=== PATIENT | male | born 1970 | race African-American/Black ===

== ENCOUNTER 2020-08-08 17:40 | Inpatient (IN) | payer SELFPAY ==
[2020-08-08] MEDS ORDERED: Magnesium 2 GM/50 ML BAG (IN WATER) ONE ×2 (18:23→18:27)
[2020-08-08] MEDS ORDERED: Labetalol HCl 100 MG/20 ML VIAL ONE (18:23)
[2020-08-08 18:34] LABS: Bacteria/HPF None Seen HPF (None Seen); Bilirubin Negative (Negative); Blood, Urine 3+ (Negative); Clarity Clear (Clear); Glucose, Urine (Dipstick) Normal (Negative); Ketone, Urine 10 mg/dL (Negative); Leukocyte Negative Leu/uL (Negative); Nitrite Negative (Negative); Protein, Urine (Dipstick) 300 mg/dL (Neg-Trace); RBC/HPF 0-3 HPF (0-3); Specific Gravity, Urine 1.033 (1.002-1.036); Squamous Epithelial None Seen HPF (0-3); WBC/HPF 0-3 HPF (0-3)
[2020-08-08 18:42] LABS: Amphetamine Not Detected (NotDetected); Barbiturates Screen Not Detected (NotDetected); Benzodiazepine Screen Not Detected (NotDetected); Cocaine Metabolite Screen Not Detected (NotDetected); Medtox Control Line Valid? VALID (VALID); Medtox Reader # READER 4; Methadone Not Detected (NotDetected); Methamphetamine Not Detected (NotDetected); Opiate Screen Not Detected (NotDetected); Oxycodone Screen Not Detected (NotDetected); Phencyclidine (PCP) Not Detected (NotDetected); THC/Cannabinoid Screen Detected (NotDetected); Tricyclic Screen Not Detected (NotDetected)
[2020-08-08 18:50] LABS: #Lymphocytes 0.7 thou/uL (1.20-3.40); #Monocytes 0.5 thou/uL (0.11-0.59); #Neutrophils 4.3 thou/uL (1.40-6.50); %Basophils 0.9 % (0.0-1.0); %Eosinophils 0.3 % (0.0-10.0); %Lymphocytes 12.7 % (21.0-51.0); %Monocytes 8.1 % (0.0-10.0); %Neutrophils 77.9 % (42.0-75.0); Mean Corpuscular HGB CONC 33.6 g/dL (32.0-36.0); Mean Corpuscular Hemoglobin 33.5 pg (27.0-31.0); Mean Corpuscular Volume 99.9 fL (78.0-98.0); Mean Platelet Volume 8.7 fL (7.4-10.4); Platelet Count 86 thou/uL (130-400); RBC Distribution Width 12.9 % (11.5-14.5); Red Blood Cell (RBC) Count 3.56 mill/uL (4.70-6.10); White Blood Cell (WBC) Count 5.5 thou/uL (4.8-10.8)
[2020-08-08 19:05] LABS: Platelet Morphology Comment Appears Decreased; RBC Morphology Normal
[2020-08-08 19:09] LABS: ALT (SGPT) 63 U/L (8-55); AST (SGOT) 144 U/L (5-34); Albumin 4.6 g/dL (3.5-5.0); Alkaline Phosphatase 58 U/L (40-110); Anion Gap 23 mmol/L (10-20); BUN (Urea Nitrogen) 14 mg/dL (8.9-20.6); Bilirubin, Total 0.9 mg/dL (0.2-1.2); Calc. Creatinine Clearance 0 mL/min (70-130); Calcium 9.8 mg/dL (7.8-10.44); Carbon Dioxide 23 mmol/L (22-29); Chloride 99 mmol/L (98-107); Globulin 3.8 g/dL (2.4-3.5); Glucose 86 mg/dL (70-105); Potassium 3.6 mmol/L (3.5-5.1); Protein, Total 8.4 g/dL (6.0-8.3); Sodium 141 mmol/L (136-145)
[2020-08-08 19:10] LABS: Alcohol Less than 10 mg/dL (Less than 10)
[2020-08-08 19:21] LABS: Acetaminophen Less than 6.0 mcg/mL (10.0-30.0); Magnesium 1.7 mg/dL (1.6-2.6); Salicylate Less than 8.0 mg/dL (15.0-30.0)
[2020-08-08] MEDS ORDERED: Lidocaine 1% w/Epinephrine 1:100K 20 ML VIAL ONE (19:32)
[2020-08-08] MEDS ORDERED: Nitroglycerin 2% Ointment 1 INCH/1 GM Packet ONE (19:32)
[2020-08-08 22:28] LABS: Troponin I 0.056 ng/mL (< 0.028)
[2020-08-08] MEDS ORDERED: Labetalol HCl 100 MG/20 ML VIAL SLOW IVP PRN (22:31)
[2020-08-08 22:47] VITALS: BMI 25.4
[2020-08-09] MEDS ORDERED: hydrALAZINE 20 MG/ML VIAL SLOW IVP PRN (00:59)
[2020-08-09 01:34] LABS: Troponin I 0.057 ng/mL (< 0.028)
[2020-08-09] MEDS ORDERED: Ondansetron PF 4 MG/2 ML Vial IVP PRN (02:07)
[2020-08-09] MEDS ORDERED: Acetaminophen 325 MG TAB PO PRN (02:07)
[2020-08-09] MEDS ORDERED: niCARdipine 25 MG in Sodium Chloride 0.9% 250 ML 240 ML IVPB SCH (02:30)
[2020-08-09] MEDS ORDERED: Diazepam 5 MG TAB PO PRN (02:44)
[2020-08-09] MEDS ORDERED: Thiamine HCl 200 MG/2 ML VIAL IM SCH (02:45)
[2020-08-09] MEDS ORDERED: Diazepam 5 MG TAB PO SCH (02:45)
[2020-08-09 03:28] LABS: PTT 26.9 sec (22.9-36.1); Prothrombin Time 13.3 sec (12.0-14.7)
[2020-08-09 03:30] LABS: D-Dimer Test 1.44 *mcg/mL (0.27-0.43)
[2020-08-09 03:42] LABS: Troponin I 0.073 ng/mL (< 0.028)
[2020-08-09 03:43] LABS: Anion Gap 19 mmol/L (10-20); BUN (Urea Nitrogen) 11 mg/dL (8.9-20.6); Calc. Creatinine Clearance 113 mL/min (70-130); Calcium 9.2 mg/dL (7.8-10.44); Carbon Dioxide 21 mmol/L (22-29); Chloride 100 mmol/L (98-107); Glucose 85 mg/dL (70-105); Potassium 3.2 mmol/L (3.5-5.1); Sodium 137 mmol/L (136-145)
[2020-08-09 03:45] LABS: ALT (SGPT) 51 U/L (8-55); AST (SGOT) 114 U/L (5-34); Albumin 4.1 g/dL (3.5-5.0); Alkaline Phosphatase 54 U/L (40-110); Bilirubin, Direct 0.5 mg/dL (0.1-0.3); Protein, Total 7.5 g/dL (6.0-8.3)
[2020-08-09 03:52] LABS: #Lymphocytes 0.8 thou/uL (1.20-3.40); #Monocytes 0.7 thou/uL (0.11-0.59); #Neutrophils 4.4 thou/uL (1.40-6.50); %Basophils 0.6 % (0.0-1.0); %Eosinophils 0.5 % (0.0-10.0); %Lymphocytes 13.8 % (21.0-51.0); %Monocytes 12.2 % (0.0-10.0); Hemoglobin 11.3 g/dL (14.0-18.0); Mean Corpuscular HGB CONC 35.8 g/dL (32.0-36.0); Mean Corpuscular Hemoglobin 35.4 pg (27.0-31.0); Mean Platelet Volume 9.1 fL (7.4-10.4); Platelet Count 74 thou/uL (130-400); RBC Distribution Width 12.8 % (11.5-14.5); Red Blood Cell (RBC) Count 3.19 mill/uL (4.70-6.10); White Blood Cell (WBC) Count 6.1 thou/uL (4.8-10.8)
[2020-08-09 03:55] LABS: Syphilis Antibody Nonreactive (Nonreactive); Syphilis Antibody Index 0.04 S/CO (<1.00 Non-Reactive)
[2020-08-09 05:35] LABS: SARS-CoV-2 PCR by NAA Not Detected (NotDetected)
[2020-08-09 06:42] LABS: Troponin I 0.059 ng/mL (< 0.028)
[2020-08-09] MEDS: Famotidine 20 MG TAB PO SCH ×2 (07:58→20:27)
[2020-08-09] MEDS: Folic Acid 1 MG TAB PO SCH (07:58)
[2020-08-09] MEDS: Amlodipine 10 MG TAB PO SCH (07:58)
[2020-08-09] MEDS: Multivitamin W/ Minerals 1 TAB PO SCH (07:58)
[2020-08-09] MEDS ORDERED: Metoprolol Tartrate 5 MG/5 ML VIAL IVP PRN (09:14)
[2020-08-09] MEDS: Hydrochlorothiazide 25 MG TAB PO SCH (09:23)
[2020-08-09] MEDS ORDERED: Electrolyte Replacement Protocol 1 EACH FS SCH (09:45)
[2020-08-09] MEDS ORDERED: Electrolyte Replacement Protocol FS PRN (10:00)
[2020-08-09] MEDS ORDERED: Magnesium 2 GM/50 ML 2 GM in Premix Bag 1 BAG IVPB SCH (11:00)
[2020-08-09] MEDS ORDERED: Potassium Chloride 20 MEQ TAB PO SCH (11:15)
[2020-08-09] MEDS ORDERED: Iopamidol 370 76% 100 ML VIAL ONE (12:05)
[2020-08-10] MEDS ORDERED: Diazepam 5 MG TAB PO PRN (04:00)
[2020-08-10 05:08] LABS: #Basophils 0.1 thou/uL (0.0-0.2); #Eosinphils 0.1 thou/uL (0.0-0.7); #Lymphocytes 1.4 thou/uL (1.20-3.40); #Monocytes 0.7 thou/uL (0.11-0.59); #Neutrophils 4.3 thou/uL (1.40-6.50); %Basophils 1.3 % (0.0-1.0); %Eosinophils 1.4 % (0.0-10.0); %Lymphocytes 21.4 % (21.0-51.0); %Monocytes 9.9 % (0.0-10.0); Hemoglobin 12.7 g/dL (14.0-18.0); Mean Corpuscular HGB CONC 31.9 g/dL (32.0-36.0); Mean Platelet Volume 9.1 fL (7.4-10.4); Platelet Count 86 thou/uL (130-400); RBC Distribution Width 12.7 % (11.5-14.5); Red Blood Cell (RBC) Count 3.97 mill/uL (4.70-6.10); White Blood Cell (WBC) Count 6.5 thou/uL (4.8-10.8)
[2020-08-10 05:32] LABS: ALT (SGPT) 51 U/L (8-55); AST (SGOT) 114 U/L (5-34); Albumin 4.3 g/dL (3.5-5.0); Alkaline Phosphatase 65 U/L (40-110); Anion Gap 15 mmol/L (10-20); BUN (Urea Nitrogen) 14 mg/dL (8.9-20.6); Bilirubin, Direct 0.5 mg/dL (0.1-0.3); Bilirubin, Total 1.2 mg/dL (0.2-1.2); Calc. Creatinine Clearance 96 mL/min (70-130); Calcium 9.9 mg/dL (7.8-10.44); Carbon Dioxide 27 mmol/L (22-29); Chloride 96 mmol/L (98-107); Glucose 99 mg/dL (70-105); Magnesium 2.2 mg/dL (1.6-2.6); Potassium 3.1 mmol/L (3.5-5.1); Protein, Total 8.1 g/dL (6.0-8.3); Sodium 135 mmol/L (136-145)
[2020-08-10] MEDS ORDERED: Potassium Chloride 20 MEQ TAB PO SCH (06:45)
[2020-08-10] MEDS: Multivitamin W/ Minerals 1 TAB PO SCH (08:38)
[2020-08-10] MEDS: Amlodipine 10 MG TAB PO SCH (08:38)
[2020-08-10] MEDS: Hydrochlorothiazide 25 MG TAB PO SCH (08:38)
[2020-08-10] MEDS: Famotidine 20 MG TAB PO SCH (08:39)
[2020-08-10] MEDS: Folic Acid 1 MG TAB PO SCH (08:39)
[2020-08-10] MEDS ORDERED: Losartan 25 MG TAB PO SCH (09:00)
[2020-08-10] MEDS ORDERED: Magnesium Oxide 400 MG TAB PO SCH (09:00)
[2020-08-10] MEDS ORDERED: Thiamine 100 MG TAB PO SCH (09:00)
[2020-08-10] MEDS ORDERED: Carvedilol 6.25 MG TAB PO SCH (09:00)
[2020-08-10 11:24] VITALS: BP 150/94; TEMP 98.8
== END 2020-08-10 12:35 | disposition home or self-care (01) | DRG 282 ==
LOC: ERS 17:40 → 2SW 21:26 → OBSVTOIN 08-09 02:09 → CCU 08-09 02:37 → 2NO 08-10 03:34
PROVIDERS: ADMIT Internal Medicine; ATTEND Internal Medicine
DX: I16.0 Hypertensive urgency (principal); I21.A1 Myocardial infarction type 2; I10 Essential (primary) hypertension; E78.5 Hyperlipidemia, unspecified; F10.10 Alcohol abuse, uncomplicated; F12.10 Cannabis abuse, uncomplicated; F17.210 Nicotine dependence, cigarettes, uncomplicated; R74.8 Abnormal levels of other serum enzymes; Z20.822 Contact with and (suspected) exposure to COVID-19; R55 Syncope and collapse; Y90.0 Blood alcohol level of less than 20 mg/100 ml; E78.00 Pure hypercholesterolemia, unspecified; R94.31 Abnormal electrocardiogram [ECG] [EKG]; D69.6 Thrombocytopenia, unspecified; Z71.6 Tobacco abuse counseling; Z71.41 Alcohol abuse counseling and surveillance of alcoholic; Z71.51 Drug abuse counseling and surveillance of drug abuser
CPT/HCPCS: 12011; 36415; 70450; 71045; 71275; 80048; 80053; 80076; 80306; 80307; 81003; 81015; 83735; 83880; 84484; 85025; 85379; 85610; 85730; 86780; 87635; 93005; 93010; 93306; 96365; 96375; 96376; G0378; J3411; J3475; J7050; Q9967; U0003; U0005

== ENCOUNTER 2020-08-13 12:34 | Emergency (ER) | payer SELFPAY ==
[2020-08-13 13:08] LABS: #Basophils 0.1 thou/uL (0.0-0.2); #Eosinphils 0.1 thou/uL (0.0-0.7); #Lymphocytes 1.1 thou/uL (1.20-3.40); #Monocytes 0.8 thou/uL (0.11-0.59); %Basophils 1.3 % (0.0-1.0); %Eosinophils 1.4 % (0.0-10.0); %Lymphocytes 18.7 % (21.0-51.0); %Monocytes 13.5 % (0.0-10.0); %Neutrophils 65.2 % (42.0-75.0); Hemoglobin 11.7 g/dL (14.0-18.0); Mean Corpuscular HGB CONC 32.2 g/dL (32.0-36.0); Mean Corpuscular Hemoglobin 32.3 pg (27.0-31.0); Mean Platelet Volume 8.3 fL (7.4-10.4); Platelet Count 115 thou/uL (130-400); RBC Distribution Width 12.6 % (11.5-14.5); Red Blood Cell (RBC) Count 3.62 mill/uL (4.70-6.10); White Blood Cell (WBC) Count 6.1 thou/uL (4.8-10.8)
[2020-08-13 13:35] LABS: Bacteria/HPF None Seen HPF (None Seen); Bilirubin Negative (Negative); Blood, Urine 1+ (Negative); Clarity Clear (Clear); Glucose, Urine (Dipstick) Normal (Negative); Ketone, Urine Negative (Negative); Leukocyte Negative Leu/uL (Negative); Nitrite Negative (Negative); Protein, Urine (Dipstick) 30 mg/dL (Neg-Trace); RBC/HPF 0-3 HPF (0-3); Specific Gravity, Urine 1.014 (1.002-1.036); Squamous Epithelial 0-3 HPF (0-3); Urobilinogen Normal mg/dL (Less than 2); WBC/HPF 0-3 HPF (0-3); pH, Urine 6.5 (5.0-9.0)
[2020-08-13 13:38] LABS: Medtox Reader # READER 4
[2020-08-13 13:39] LABS: Amphetamine Not Detected (NotDetected); Barbiturates Screen Not Detected (NotDetected); Benzodiazepine Screen Detected (NotDetected); Cocaine Metabolite Screen Not Detected (NotDetected); Medtox Control Line Valid? VALID (VALID); Methadone Not Detected (NotDetected); Methamphetamine Not Detected (NotDetected); Opiate Screen Not Detected (NotDetected); Oxycodone Screen Not Detected (NotDetected); Phencyclidine (PCP) Not Detected (NotDetected); THC/Cannabinoid Screen Not Detected (NotDetected); Tricyclic Screen Not Detected (NotDetected)
[2020-08-13 13:50] LABS: ALT (SGPT) 90 U/L (8-55); AST (SGOT) 169 U/L (5-34); Albumin 4.2 g/dL (3.5-5.0); Alkaline Phosphatase 58 U/L (40-110); Anion Gap 17 mmol/L (10-20); BUN (Urea Nitrogen) 42 mg/dL (8.9-20.6); Bilirubin, Total 0.7 mg/dL (0.2-1.2); Calc. Creatinine Clearance 0 mL/min (70-130); Calcium 8.9 mg/dL (7.8-10.44); Carbon Dioxide 24 mmol/L (22-29); Chloride 102 mmol/L (98-107); Globulin 3.7 g/dL (2.4-3.5); Glucose 111 mg/dL (70-105); Potassium 3.3 mmol/L (3.5-5.1); Protein, Total 7.9 g/dL (6.0-8.3); Sodium 140 mmol/L (136-145)
[2020-08-13 14:40] LABS: Acetaminophen Less than 6.0 mcg/mL (10.0-30.0); Alcohol 54 mg/dL (Less than 10); CK (CPK) 1574 U/L (30-200); Lipase 94 U/L (8-78); Salicylate Less than 8.0 mg/dL (15.0-30.0)
[2020-08-13] MEDS ORDERED: Folic Acid 1 MG, Multivitamins, Adult 10 ML in Dextrose 5 %-0.45 % NaCl 1,000 ML IV SCH (15:30)
[2020-08-13] MEDS ORDERED: Thiamine HCl 200 MG/2 ML VIAL SLOW IVP SCH (15:30)
== END 2020-08-13 16:05 | disposition home or self-care (01) ==
LOC: ERS 12:34
DX: M62.82 Rhabdomyolysis (principal); N28.9 Disorder of kidney and ureter, unspecified; R55 Syncope and collapse; I10 Essential (primary) hypertension; E78.00 Pure hypercholesterolemia, unspecified; F17.290 Nicotine dependence, other tobacco product, uncomplicated; Z79.899 Other long term (current) drug therapy
CPT/HCPCS: 36415; 71045; 80053; 80306; 80307; 81003; 81015; 82140; 82550; 83690; 84484; 85025; 93005; J3411; J7042

== ENCOUNTER 2020-09-11 17:31 | Emergency (ER) | payer SELFPAY | END 2020-09-11 18:46 | disposition home or self-care (01) | LOC: ERS 17:31 | DX: S01.81XD Laceration without foreign body of other part of head, subsequent encounter (principal); E78.5 Hyperlipidemia, unspecified; I10 Essential (primary) hypertension; F17.290 Nicotine dependence, other tobacco product, uncomplicated; Z79.899 Other long term (current) drug therapy; X58.XXXD Exposure to other specified factors, subsequent encounter ==

== ENCOUNTER 2022-01-30 08:10 | Emergency (ER) | payer SELFPAY | END 2022-01-30 09:40 | disposition home or self-care (01) | LOC: ERS 08:10 | DX: K04.7 Periapical abscess without sinus (principal); L03.211 Cellulitis of face; I10 Essential (primary) hypertension; F17.290 Nicotine dependence, other tobacco product, uncomplicated | CPT/HCPCS: 99283 ==

== ENCOUNTER 2022-04-29 16:56 | Emergency (ER) | payer SELFPAY | END 2022-04-29 19:09 | disposition home or self-care (01) | LOC: ERS 16:56 | DX: I10 Essential (primary) hypertension (principal); Z76.0 Encounter for issue of repeat prescription | CPT/HCPCS: 93005; 99282 ==